=== PATIENT | male | born 1945 | race Caucasian/White ===

== ENCOUNTER 2020-10-15 10:49 | Day surgery (SDC) | payer BC ==
[2020-10-12 13:14] LABS: BASOPHILS % (AUTO) 0.3 % (0.0-5.0); EOSINOPHILS % (AUTO) 3.6 % (0.0-8.0); HEMATOCRIT 41.1 % (42-54); LYMPHOCYTES % (AUTO) 22.6 % (21.0-51.0); MEAN CORPUSCULAR HGB CONC 32.1 g/dL (32.0-36.0); MEAN CORPUSCULAR VOLUME 90.3 fL (79-99); MONOCYTES % (AUTO) 7.8 % (3.0-13.0); NEUTROPHILS % (AUTO) 65.3 % (40.0-77.0); PLATELET COUNT (AUTO) 327 K/uL (130-400); RED BLOOD CELL COUNT(AUTO) 4.55 MIL/uL (4.50-6.20); RED CELL DISTRIBUTION WIDTH 14.3 % (11.0-15.5); WHITE BLOOD COUNT (AUTO) 11.6 K/uL (4.8-10.8)
[2020-10-12 13:24] LABS: CREATININE 1.1 mg/dL (0.5-1.5)
[2020-10-14 09:45] VITALS: BP 140/73
[~2020-10-15] VITALS: Ht 170.2 cm; Wt 83.9 kg
[2020-10-15] VITALS (14 sets, daily range): BP systolic 116–140; BP diastolic 60–75
[~2020-10-15 10:49] MED LIST: AEC81 PO; ATOR10 PO; ERGO500014 PO; FENO145T26 PO; VITAMIN D3 PO
[2020-10-15] MEDS ORDERED: LACTATED RINGERS 1000ML 1,000 ML IV ONE (12:00)
[2020-10-15] MEDS: CEFAZOLIN SODIUM 1 GM VIAL IVP SCH ×2 (12:00→14:50)
[2020-10-15] MEDS ORDERED: LIDOCAINE PF 100MG/5ML (2%) SYRINGE 5ML ONE (13:40)
[2020-10-15] MEDS ORDERED: PROPOFOL 10 MG/ML 20ML VIAL IV ONE (13:40)
[2020-10-15] MEDS ORDERED: FENTANYL CITRATE PF 50 MCG/1 ML 2ML VIAL ONE (14:54)
[2020-10-15] MEDS ORDERED: PHENYLEPHRINE HCL 10 MG/ML 1ML VIAL IV ONE (14:58)
[2020-10-15] MEDS ORDERED: GLYCOPYRROLATE 1 MG/5 ML SYRINGE ONE (14:59)
[2020-10-15] MEDS ORDERED: BACITRACIN 28.4 GM OINT TP ONE (15:05)
[2020-10-15] MEDS ORDERED: BUPIVACAINE/PF 0.25% 30ML VIAL IJ ONE (15:10)
== END 2020-10-15 17:05 | disposition home or self-care (01) ==
LOC: DAH 10:49
PROVIDERS: ATTEND Urology
DX: N47.1 Phimosis (principal); Q55.61 Curvature of penis (lateral); Z20.822 Contact with and (suspected) exposure to COVID-19; E78.5 Hyperlipidemia, unspecified; K21.9 Gastro-esophageal reflux disease without esophagitis; Z98.890 Other specified postprocedural states; Z82.49 Family history of ischemic heart disease and other diseases of the circulatory system; Z80.42 Family history of malignant neoplasm of prostate
CPT/HCPCS: 36415; 54150; 80048; 85025; 93005; A4215; A4221; A4222; A4223; A4351; A4510; A4600; A4663; A6223; A6260; A6402; C9803; J0690; J2001; J2370; J2704; J3010; J3490 ×2; J7120; U0003

== ENCOUNTER → 2022-08-29 | Outpatient (CLI) | payer BC ==
[~2022-08-29] MED LIST changes: -AEC81 PO; -ERGO500014 PO; +ERGO500093 PO; +METF-444 PO; +OMEP40CA21 PO; -VITAMIN D3 PO
== END | disposition home or self-care (01) ==
LOC: SHCH 11:00
PROVIDERS: ATTEND Student in an Organized Health Care Education/Training Program
DX: R42 Dizziness and giddiness (principal); E78.5 Hyperlipidemia, unspecified
CPT/HCPCS: 93306